=== PATIENT | female | born 1985 | race Hispanic/Latino ===

== ENCOUNTER 2024-10-28 17:47 | Emergency (ER) | payer OTHER ==
[2024-10-28] MEDS ORDERED: ALBUTEROL 2.5 MG/3 ML NEB SOL ONE (18:42)
[2024-10-28 19:16] LABS: Absolute Basophils 0.1 K/uL (0-0.5); Absolute Eosinophils 0.1 K/uL (0-0.5); Absolute Lymphocytes (CBC) 2.1 K/uL (0.7-4.9); Absolute Monocytes 0.9 K/uL (0.1-1.3); Absolute Neutrophil 4.9 K/uL (1.8-8.0); Basophils % 0.8 % (0-1.3); Eosinophils % 0.7 % (0-4.4); Hematocrit 36.2 % (36.0-45.0); Hemoglobin 12.3 g/dL (12.0-15.0); MCH 31.5 pg (27.0-35.0); MCHC 34.1 g/dL (32.0-36.0); MCV 92.4 fL (80-100); MPV 7.2 fL (7.6-11.3); Monocytes % 11.1 % (3.3-12.3); Neutrophils % 61.4 % (41.7-73.7); Platelets 340 thou/uL (152-406); RBC Red Blood Cell Count 3.92 M/uL (3.86-4.86); Red Cell Distribution Width 13.2 % (12.1-15.2)
--- NOTE | 2024-10-28 19:16 | RAD REPORT ---
Procedure: Chest Single View HISTORY: Chest pain COMPARISON: none FINDINGS: The lungs appear clear of acute infiltrate. No significant pleural effusion noted. The heart is normal size. IMPRESSION: No acute abnormality is displayed.
[2024-10-28 19:24] LABS: PT Prothrombin Time 11.9 SECONDS (9.4-12.5); Protime INR 1.13
[2024-10-28 19:26] LABS: D-Dimer < 0.215 FEUug/mL (0-0.500)
[2024-10-28 19:37] LABS: ALT/SGPT 22 U/L (13-56); AST/SGOT 18 U/L (15-37); Albumin 3.8 g/dL (3.4-5.0); Alkaline Phosphatase 70 U/L (45-117); Anion Gap 8.3 mEq/L (5.0-15.0); BUN Blood Urea Nitrogen 17 mg/dL (7-18); Bicarbonate 29 mEq/L (21-32); Bilirubin Total 0.2 mg/dL (0.2-1.0); Globulin 3.7 g/dL (2.3-3.5); Glomerular Filtration Rate 115 ml/min (=/>90); Glucose Level 91 mg/dL (74-106); Magnesium 2.3 mg/dL (1.6-2.4); NT PRO-BNP 38 pg/mL (<125); Potassium 3.3 mEq/L (3.5-5.1); Protein, Total 7.5 g/dL (6.4-8.2); Sodium Level 139 mEq/L (136-145); Troponin High Sensitivity 7.2 pg/mL (<58.9)
[2024-10-28 19:45] LABS: Bilirubin Direct < 0.2 mg/dL (0-0.2)
[2024-10-28] MEDS ORDERED: POTASSIUM 25 MEQ EFFERV TAB ONE (20:02)
--- NOTE | 2024-10-28 20:10 | EDPHYS ---
Physician Documentation [facility] Name: Ella Tellez Age: 38 yrs Sex: Female : 1985 Arrival Date: 10/28/2024 Time: 17:47 Bed 14 Private MD: ED Physician Valerio Ken HPI: 10/28 18:12 This 38 yrs old Female presents to ER via Ambulatory with complaints of Chest sb4 Pain. 18:12 patient reports chest pain that began 30 minutes [employer] when she was at rest. states it is sb4 substernal and feels 'heavy" making it difficulty to take a deep breath. reports associated dizziness and nausea. reports a prior episode 3 days ago. denies any medial history, does not smoke, no recent travel, not . Historical: - Allergies: 18:06 EGG/POULTRY; ss - Home Meds: 18:06 None [Active]; ss - PMHx: 18:06 None; ss - PSHx: 18:06 section; ss - Immunization history:: Client reports having NOT received the Covid vaccine. - Infectious Disease History:: Denies. - Social history:: Smoking status: Patient denies any tobacco usage or history of. ROS: 18:12 Constitutional: Negative for fever, chills, and weight loss, sb4 18:12 Cardiovascular: Positive for chest pain, 18:12 All other systems are negative, Exam: 18:12 Constitutional: This is a well developed, well nourished patient who is awake, alert, sb4 and in no acute distress. Head/Face: Normocephalic, atraumatic. Eyes: Extra-ocular motions intact. Periorbital areas with no swelling, redness, or edema. ENT: Mucous membranes moist. Cardiovascular: Regular rate and rhythm with a normal S1 and S2. Respiratory: No increased work of breathing, no retractions or nasal flaring. Abdomen/GI: Soft, non-tender, no distension. Skin: Warm, dry with normal turgor. Normal color with no rashes, no lesions, and no evidence of cellulitis. MS/ Extremity: Pulses equal, no cyanosis. Neurovascular intact. Full, normal range of motion. Neuro: Awake and alert, GCS 15, oriented to person, place, time, and situation. Motor strength 5/5 in all extremities. Sensory grossly intact. Vital Signs: 18:04 BP 124 / 84; Pulse 82; Resp 16; Temp 98.4(O); Pulse Ox 100% on R/A; Height 5 ft. 0 in. ss ; Pain 5/10; 18:40 BP 116 / 69; Pulse 75; Resp 16; Pulse Ox 100% ; db 19:30 BP 114 / 66; Pulse 70; Resp 17; Pulse Ox 100% on R/A; rg5 18:04 Pain Scale: Adult ss MDM: 18:00 Medical Screening Exam initiated sb4 20:11 Data reviewed: vital signs, nurses notes, lab test result(s), EKG, radiologic studies, sb4 and as a result, I will discharge patient. Counseling: I had a detailed discussion with the patient and/or guardian regarding the historical points, exam findings, and any diagnostic results supporting the discharge/admit diagnosis, lab results, radiology results, the need for outpatient follow up, for definitive care, to return to the emergency department if symptoms worsen or persist or if there are any questions or concerns that arise at home. 10/28 18:11 Order name: Basic Metabolic Panel; Complete Time: 19:46 sb4 10/28 18:11 Order name: CBC with Diff; Complete Time: 19:20 sb4 10/28 18:11 Order name: D-Dimer; Complete Time: 19:26 sb4 10/28 18:11 Order name: LFT's; Complete Time: 19:46 sb4 10/28 18:11 Order name: Magnesium; Complete Time: 19:46 sb4 10/28 18:11 Order name: NT PRO-BNP; Complete Time: 19:46 sb4 10/28 18:11 Order name: PT-INR; Complete Time: 19:26 sb4 10/28 18:11 Order name: Troponin HS; Complete Time: 19:46 sb4 10/28 18:11 Order name: Test, Serum; Complete Time: 19:24 sb4 10/28 18:11 Order name: XRAY Chest (1 view); Complete Time: 19:17 sb4 10/28 18:11 Order name: Cardiac monitoring; Complete Time: 18:51 sb4 10/28 18:11 Order name: EKG - Nurse/Tech; Complete Time: 18:51 sb4 10/28 18:11 Order name: IV Saline Lock; Complete Time: 18:51 sb4 10/28 18:11 Order name: Labs collected and sent; Complete Time: 18:51 sb4 10/28 18:11 Order name: O2 Per Protocol; Complete Time: 18:51 sb4 10/28 18:11 Order name: O2 Sat Monitoring; Complete Time: 18:51 sb4 EC:59 Rate is 80 beats/min. Rhythm is regular, Normal Sinus Rhythm. SD interval is normal at sb4 136 msec. QRS interval is normal at 72 msec. QT interval is normal at 378 msec. No Q waves. T waves are Normal. No ST changes noted. Clinical impression: Normal ECG and No evidence of ischemia. Interpreted by me. Reviewed by me. Administered Medications: 18:52 Drug: Albuterol Inhalation 2.5 mg Inhalation once Route: Inhalation; db 20:03 Drug: Potassium PO Effervescent Tablet 25 mEq PO once; dissolve in 4 ounces of water or rg5 juice Route: PO; 20:14 Follow up: Response: No adverse reaction rg5 Disposition Summary: 10/28/24 20:09 Discharge Ordered Notes: Location: Home sb4 Problem: new sb4 Symptoms: have improved sb4 Condition: Stable sb4 Diagnosis - Chest pain, unspecified sb4 Followup: sb4 - With: Emergency Department - When: As needed - Reason: Trouble breathing, Worsening of condition Discharge Instructions: - Discharge Summary Sheet sb4 - Nonspecific Chest Pain, Adult, [id number] sb4 - Upper Respiratory Infection, Adult, [id number] sb4 Forms: - Patient Portal Instructions sb4 - Leadership Thank You Letter sb4 Prescriptions: - albuterol sulfate 90 mcg/actuation Inhalation HFA Aerosol Inhaler - inhale 1 puff INHALATION route every 6 to 8 hours as needed for shortness of sb4 breath or wheezing; 1 Applicator; Refills: 0, Product Selection Permitted - Prednisone 20 mg Oral Tablet - take 1 tablet ORAL route once daily for 5 days; 5 tablet; Refills: 0, Product sb4 Selection Permitted Addendum: 10/30/2024 09:53 Co-signature as Attending Physician, Valerio Ken MD I agree with the assessment and c cornejo plan of care. Signatures: Dispatcher [employer] EDValerio Medina MD MD cha Blanchard, Shelby, RN RN ss Benton, Danielle, RN RN db Akila Maldonado PA-C PAKassandraC sb4 Spencer Ozuna RN RN rg5 Corrections: (The following items were deleted from the chart) 10/28 18:06 18:06 Allergies: No Known Allergies; [facility] 18:12 18:12 Chest Single View+[email or web address] ordered. EDMS EDMS
--- NOTE | 2024-10-28 20:10 | ER ---
Nurse's Notes [facility] Name: Ella Tellez Age: 38 yrs Sex: Female : 1985 Arrival Date: 10/28/2024 Time: 17:47 Bed 14 Private MD: Diagnosis: Chest pain, unspecified Presentation: 10/28 18:04 Chief complaint: Patient states: two epsidoes of chest pain in the past week. Pt ss reports that the pain today began 30 minutes ago and is very strong. Coronavirus screen: Client denies travel out of the [place] in the last 14 days. Ebola Screen: Patient denies exposure to infectious person. Patient denies travel to an Ebola-affected area in the 21 days before illness onset. Initial Sepsis Screen: Does the patient meet any 2 criteria? No. Patient's initial sepsis screen is negative. Does the patient have a suspected source of infection? No. Patient's initial sepsis screen is negative. Risk Assessment: Do you want to hurt yourself or someone else? Patient reports no desire to harm self or others. Onset of symptoms was October 28, 2024. 18:04 Method Of Arrival: Ambulatory ss 18:04 Acuity: LINDY 3 ss Historical: - Allergies: 18:06 EGG/POULTRY; ss - Home Meds: 18:06 None [Active]; ss - PMHx: 18:06 None; ss - PSHx: 18:06 section; ss - Immunization history:: Client reports having NOT received the Covid vaccine. - Infectious Disease History:: Denies. - Social history:: Smoking status: Patient denies any tobacco usage or history of. Screenin:50 [facility] ED Fall Risk Assessment (Adult) History of falling in the last 3 months, db including since admission No falls in past 3 months (0 pts) Confusion or Disorientation No (0 pts) Intoxicated or Sedated No (0 pts) Impaired Gait No (0 pts) Mobility Assist Device Used No (0 pt) Altered Elimination No (0 pt) Score/Fall Risk Level 0 - 2 = Low Risk Oriented to surroundings, Maintained a safe environment. Abuse screen: Denies threats or abuse. Denies injuries from another. Nutritional screening: No deficits noted. Tuberculosis screening: No symptoms or risk factors identified. Assessment: 18:40 Reassessment: Patient appears in no apparent distress at this time. Patient and/or db family updated on plan of care and expected duration. Pain level reassessed. Patient is alert, oriented x 3, equal unlabored respirations, skin warm/dry/pink. General: Appears in no apparent distress. comfortable, Behavior is calm, cooperative. Pain: Complains of pain in chest Pain does not radiate. Pain Quality of pain is described as heavy. Pain: Pain began suddenly. Neuro: Level of Consciousness is awake, alert, obeys commands, Oriented to person, place, time, situation. Cardiovascular: Reports chest pain. 19:30 General: Appears in no apparent distress. comfortable, Behavior is calm, cooperative, rg5 appropriate for age. 19:30 Pain: Complains of pain in chest Quality of pain is described as heavy. Neuro: Level of rg5 Consciousness is awake, alert, obeys commands, Oriented to person, place, time, situation. Cardiovascular: Reports chest pain, Capillary refill < 3 seconds Patient's skin is warm and dry. Respiratory: Airway is patent Trachea midline Respiratory effort is even, labored. GI: No signs and/or symptoms were reported involving the gastrointestinal system. : No signs and/or symptoms were reported regarding the genitourinary system. EENT: No signs and/or symptoms were reported regarding the EENT system. Derm: Skin is intact, Skin is dry, Skin is normal. Musculoskeletal: Circulation, motion, and sensation intact. Range of motion: intact in all extremities. 20:14 Reassessment: Patient and/or family updated on plan of care and expected duration. Pain rg5 level reassessed. Patient is alert, oriented x 3, equal unlabored respirations, skin warm/dry/pink. Patient states symptoms have improved. Vital Signs: 18:04 BP 124 / 84; Pulse 82; Resp 16; Temp 98.4(O); Pulse Ox 100% on R/A; Height 5 ft. 0 in. ss ; Pain 5/10; 18:40 BP 116 / 69; Pulse 75; Resp 16; Pulse Ox 100% ; db 19:30 BP 114 / 66; Pulse 70; Resp 17; Pulse Ox 100% on R/A; rg5 18:04 Pain Scale: Adult ss ED Course: 17:53 Patient arrived in ED. al6 17:56 Akila Maldonado PA-C is PHCP. sb4 17:56 Valerio Ken MD is Attending Physician. sb4 18:06 Triage completed. ss 18:06 Arm band placed on right wrist. ss 18:38 Delmi Jacob, RN is Primary Nurse. db 18:50 Patient has correct armband on for positive identification. Bed in low position. Call db light in reach. Side rails up X 1. Provided Education on:. Client placed on continuous cardiac and pulse oximetry monitoring. NIBP monitoring applied. bus driver/monitor on. Pulse ox on. NIBP on. Warm blanket given. Pillow given. 18:55 Initial lab(s) drawn, by me, sent to lab. EKG done. Initial Neb Treatment Given as db ordered Inserted saline lock: 20 gauge in right antecubital area, using aseptic technique. Blood collected. Flushed with 10 mL NS. 19:10 XRAY Chest (1 view) In Process Unspecified. EDMS 19:37 Spencer Ozuna, MIGUEL is Primary Nurse. rg5 20:39 No provider procedures requiring assistance completed. IV discontinued, intact, vc1 bleeding controlled, No redness/swelling at site. Pressure dressing applied. Patient maintains SpO2 saturation greater than 95% on room air. Administered Medications: 18:52 Drug: Albuterol Inhalation 2.5 mg Inhalation once Route: Inhalation; db 20:03 Drug: Potassium PO Effervescent Tablet 25 mEq PO once; dissolve in 4 ounces of water or rg5 juice Route: PO; 20:14 Follow up: Response: No adverse reaction rg5 Medication: 20:39 VIS not applicable for this client. vc1 Outcome: 20:09 Discharge ordered by . sb4 20:39 Discharged to home ambulatory, with significant other, vc1 20:39 Condition: good 20:39 Discharge instructions given to significant other, Instructed on discharge instructions, follow up and referral plans. medication usage, Demonstrated understanding of instructions, follow-up care, medications, Prescriptions given X 2, 20:40 Patient left the ED. vc1 Signatures: Dispatcher [employer] EDMS Ramonita Mitchell RN RN Danielle Kang RN RN vc1 Delmi Jacob, MIGUEL RN db Akila Maldonado PA-C PA-C sb4 Spencer Ozuna RN RN rg5 Giselle Moore6 Corrections: (The following items were deleted from the chart) 18:06 18:06 Allergies: No Known Allergies; ss ss
[2024-10-28 20:49] VITALS: TEMP 98.4; O2SAT 100
[2024-10-28 21:00] VITALS: BP 114/66
== END 2024-10-28 20:40 | disposition home or self-care (01) ==
LOC: ER 17:47
DX: R07.9 Chest pain, unspecified (principal); R42 Dizziness and giddiness; R11.0 Nausea
CPT/HCPCS: 85025; 80048; 36415; 83735; 84703; 85610; 85379; 80076; 84484; 83880; 71045; 94640; 99285; J7613; 93005